=== PATIENT | male | born 1980 | race Two or more races ===

== ENCOUNTER 2018-10-13 17:43 | Emergency (ER) | payer OTHER ==
[~2018-10-13] VITALS: Ht 177.8 cm; Wt 104.3 kg
[~2018-10-13 17:43] MED LIST: KETO10TA2 PO; NORFLEX100MG PO
== END 2018-10-14 00:27 | disposition home or self-care (01) ==
LOC: ER 17:43
DX: R10.31 Right lower quadrant pain (principal)

== ENCOUNTER 2019-01-27 12:06 | Emergency (ER) | payer OTHER ==
[~2019-01-27] VITALS: Ht 177.8 cm; Wt 108.0 kg
== END 2019-01-27 18:46 | disposition home or self-care (01) ==
LOC: ER 12:06
DX: K58.8 Other irritable bowel syndrome (principal)

== ENCOUNTER 2021-07-22 17:24 | Emergency (ER) | payer OTHER ==
[~2021-07-22] VITALS: Ht 177.8 cm; Wt 112.9 kg
[2021-07-22] MEDS ORDERED: TUSNEL LIQUID178 ML PO (20:48)
[2021-07-22] MEDS ORDERED: MEDROLPACK PO (20:48)
[2021-07-22] MEDS ORDERED: PROAIR RESPICL90 MCG IH (20:48)
[2021-07-22] MEDS ORDERED: ZITHROMAX500 MG PO (20:48)
== END 2021-07-22 21:23 | disposition home or self-care (01) ==
LOC: ER 17:24
DX: U07.1 COVID-19 (principal); Z88.8 Allergy status to other drugs, medicaments and biological substances